=== PATIENT | male | born 1995 | race African-American/Black ===

== ENCOUNTER 2019-03-27 08:57 | Inpatient (IN) ==
[2019-03-27] MEDS ORDERED: SODIUM CHLORIDE 0.9% 1000ML 1,000 ML IV SCH (10:00)
[2019-03-27 10:19] LABS: Basophils # (auto) 0.03 K/uL (0-0.2); Basophils % (auto) 0.3 %; Eosinophils # (auto) 0.12 K/uL (0-0.5); Eosinophils % (auto) 1.3 %; Hematocrit (blood only) 37.5 % (42-52); Hemoglobin 11.9 g/dL (14.0-18.0); Immature Granulocytes # (auto) 0.01 K/uL (0.00-0.02); Immature Granulocytes % (auto) 0.1 %; Lymphocytes # (auto) 1.58 K/uL (1.2-3.4); Mean Corpuscular Hgb Conc 31.7 g/dL (32-36); Mean Corpuscular Volume 75.3 fL (80-100); Mean Platelet Volume 8.5 fL (7.4-10.4); Monocytes # (auto) 1.33 K/uL (0.11-0.59); Monocytes % (auto) 14.3 %; Neutrophils # (auto) 6.22 K/uL (1.4-6.5); Platelet Count 340 K/uL (130-400); RDW Coefficient of Variation 16.3 % (11.5-14.5); RDW Standard Deviation 45.3 fL (36.4-46.3); Red Blood Count 4.98 M/uL (4.7-6.1); White Blood Count 9.29 K/uL (4.8-10.8)
--- NOTE | 2019-03-27 10:23 | Emergency Department Note ---
Entered by Saranya Live acting as a scribe for History of Present Illness General Chief complaint: Rectal Pain Stated complaint: RECTAL PAIN AND BLEEDING Time Seen by Provider: 03/27/19 09:38 Source: patient History of Present Illness Onset (ago): day(s) (3) Location: pelvis Pain Consistency: + constant Maximum Pain Intensity: 4 Quality: + other (rectal ) Associated symptoms: + denies other symptoms (abdominal pain, trauma), + weakness and + other (sweating, pain with bowel movements, blood in stool); no chest pain, no fever/chills and no shortness of breath The patient is a 23 year old male who presents to the Emergency Room with complaints of constant rectal pain beginning three days ago. The patient reports sweating, weakness yesterday, blood in his stool, and pain with his bowel movements. He notes that he has never had any similar rectal pain. He denies any fever, trauma, chest pain, abdominal pain, and shortness of breath. The patient states that he was diagnosed with ulcerative colitis during this past summer and is currently taking medication to treat it. He denies any history of hemorrhoids. Home Medications Home Medications Medication Instructions Recorded Confirmed Type acetaminophen [Tylenol Extra 1,000 mg PO Q6H PRN 03/27/19 03/27/19 History Strength] mesalamine [address] HS 03/27/19 03/27/19 History Allergies Allergy/AdvReac Type Severity Reaction Status Date / Time No Known Allergies Allergy Unverified 03/27/19 10:01 Past Med/Surg History Medical History Ulcerative colitis Surgical History No pertinent past surgical history Social History Feels Safe at Home: Yes Smoking Status: Never smoker Hx Alcohol Use: Yes Alcohol type: hard liquor Alcohol Intake Frequency Comment: "probably too much" 3-4x/week Hx Substance Use: No Review of Systems See HPI for pertinent positives & negatives. and A total of 10 systems reviewed and were otherwise negative Physical Exam Vital Signs Vital Signs - 24 hr 03/27/19 09:01 03/27/19 10:13 03/27/19 10:30 Temperature 36.7 C Temperature Source Oral Sepsis Recent Fever Within 48 Hours No Sepsis New/Unexplained Change in Mental Status No Sepsis Action Taken by Nursing No Action Required Pulse Rate 82 Pulse Rate [Apical] 80 76 Pulse Rhythm [Apical] Regular Respiratory Rate 20 16 17 Respiratory Effort / Characteristics Non-Labored Spontaneous Respiratory Depth Normal Normal Respiratory Pattern Regular Blood Pressure 131/70 Blood Pressure [Left Arm] 125/69 145/68 H Blood Pressure Mean 90 Blood Pressure Mean [Left Arm] 87 93 Pulse Oximetry 100 99 100 Oxygen Delivery Method Room Air Room Air Room Air 03/27/19 11:40 03/27/19 13:00 Temperature Temperature Source Sepsis Recent Fever Within 48 Hours Sepsis New/Unexplained Change in Mental Status Sepsis Action Taken by Nursing Pulse Rate Pulse Rate [Apical] 85 65 Pulse Rhythm [Apical] Regular Regular Respiratory Rate 18 17 Respiratory Effort / Characteristics Non-Labored Spontaneous Non-Labored Spontaneous Respiratory Depth Normal Normal Respiratory Pattern Regular Regular Blood Pressure Blood Pressure [Left Arm] 146/80 H 154/74 H Blood Pressure Mean Blood Pressure Mean [Left Arm] 102 100 Pulse Oximetry 100 100 Oxygen Delivery Method Room Air Room Air General: Non-ill appearing younger male in no acute distress. HEENT: Normal cephalic atraumatic. Pupils are equal round and reactive to light. Extraocular movements are intact. Oropharynx is pink with moist mucous membranes. No swelling of the mouth lips or tongue. Neck: Supple with a midline trachea. No meningeal signs or stiffness, no JVD or bruits. No Stridor. Chest: Clear to auscultation bilaterally. No wheezes or rhonchi. No increased work of breathing. Heart: regular rate and rhythm. Abdomen: Soft nontender, nondistended without rebound guarding or rigidity. Extremities: No cyanosis clubbing or edema. No calf tenderness or asymmetry Spine/Back. Non tender to palpation. No CVA tenderness Skin: Good turgor without rashes. Neurologic exam: Cranial nerves two through 12 are intact. Motor and sensation are intact and symmetrical throughout. Rectal: Normal external without mass or fissures, digital rectal no fluctuation or mass, small amount of blood on glove guaiac positive Course 0935: Past medical records reviewed. The patient was evaluated in room B05. A complete history and physical exam was performed. 1058: Discussed the patient's case with Dr. Graham WOOD. She recommends stool studies. 1111: Upon reevaluation, the patient is resting more comfortably. 1400: I spoke with Dr. Otoole - [facility] who agrees the patient should be evaluated further. 1430: Discussed the patient's case with - [facility] Hospitalist. The patient will be evaluated for further management. Administered Medications Ioversol (Optiray 320 100ml) 93 ml IV ONCE PRN PRN Reason: Interaction Checking Stop: 03/31/19 11:36 Last Admin: 03/27/19 11:38 Dose: 93 ml Documented by: [id number] Discontinued Medications Sodium Chloride (Nss 1000ml) 1,000 mls @ 999 mls/hr IV .Q1H1M RAJANI Stop: 03/27/19 11:00 Last Infusion: 03/27/19 11:17 Dose: 0 mls/hr Documented by: [id number] Admin: 03/27/19 10:12 Dose: 999 mls/hr Documented by: [id number] Piperacillin Sod/Tazobactam Sod (Zosyn) 4.5 gm in 120 mls @ 240 mls/hr IV NOW ONE Stop: 03/27/19 13:29 Last Infusion: 03/27/19 13:55 Dose: 0 mls/hr Documented by: [id number] Admin: 03/27/19 13:05 Dose: 240 mls/hr Documented by: [id number] Morphine Sulfate (Morphine Sulfate) Confirm Administered Dose 2 mg .ROUTE .STK- MED ONE Stop: 03/27/19 16:34 Last Admin: 03/27/19 16:38 Dose: 0.5 mg Documented by: [id number] Medical Decision Making Differential Diagnosis rectal bleed, ulcerative colitis , abscess, fissure, anemia, electrolyte or metabolic abnormalities Medical Records Attestation: I reviewed the patient's medical records. Home Medications Current Medication List: was personally reviewed by me Laboratory Data Attestation: I reviewed the patient's lab results. Result diagrams: 03/27/19 10:03 03/27/19 10:03 Lab Results 03/27/19 03/27/19 03/27/19 Range/Units 10:03 10:03 10:03 WBC 9.29 (4.8-10.8) K/uL RBC 4.98 (4.7-6.1) M/uL Hgb 11.9 L (14.0-18.0) g/dL Hct 37.5 L (42-52) % MCV 75.3 L (80-100) fL MCH 23.9 L (25-34) pg MCHC 31.7 L (32-36) g/dL RDW Std Deviation 45.3 (36.4-46.3) fL RDW Coeff of Abimael 16.3 H (11.5-14.5) % Plt Count 340 (130-400) K/uL MPV 8.5 (7.4-10.4) fL Immature Gran % (Auto) 0.1 % Neut % (Auto) 67.0 % Lymph % (Auto) 17.0 % [place] % (Auto) 14.3 % Eos % (Auto) 1.3 % Baso % (Auto) 0.3 % Immature Gran # (Auto) 0.01 (0.00-0.02) K/uL Neut # (Auto) 6.22 (1.4-6.5) K/uL Lymph # (Auto) 1.58 (1.2-3.4) K/uL [place] # (Auto) 1.33 H (0.11-0.59) K/uL Eos # (Auto) 0.12 (0-0.5) K/uL Baso # (Auto) 0.03 (0-0.2) K/uL Sodium 138 (136-145) mmol/L Potassium 4.0 (3.5-5.1) mmol/L Chloride 104 (98-107) mmol/L Carbon Dioxide 28 (21-32) mmol/L Anion Gap 6.0 (3-11) BUN 11 (7-18) mg/dl Creatinine 1.19 (0.6-1.4) mg/dl Est Cr Clr Drug Dosing 113.2 ml/min Est GFR ( Amer) 99.9 Est GFR (Non-Af Amer) 86.2 BUN/Creatinine Ratio 9.1 L (10-20) Glucose 84 (70-99) mg/dl Calcium 9.0 (8.5-10.1) mg/dl Total Bilirubin 0.4 (0.2-1) mg/dl AST 27 (15-37) U/L ALT 33 (12-78) U/L Alkaline Phosphatase 83 (45-117) U/L C-Reactive Protein 0.92 H (0-0.29) mg/dl Total Protein 8.4 H (6.4-8.2) gm/dl Albumin 3.8 (3.4-5.0) gm/dl Globulin 4.6 H (2.5-4.0) gm/dl Albumin/Globulin Ratio 0.8 L (0.9-2) Lipase 152 (73-393) U/L Imaging Data Radiologist's Impression: Radiology results as stated below per my review and the radiologist's interpretation: CT abd pelvis IV con only CLINICAL HISTORY: rectal pain, ulcerative colitis COMPARISON STUDY: None. TECHNIQUE: The patient was scanned in a dynamic helical fashion during intravenous administration of 93 cc of Optiray 320. A dose lowering technique was utilized adhering to the principles of ALARA. CT DOSE: 474.08 mGycm FINDINGS: Lower chest: The heart is normal in size and configuration, without pericardial effusion. The lung bases and pleural spaces are clear. Liver: The contrast-enhanced liver is normal in size, contour, and attenuation. There is no intrahepatic biliary ductal dilatation. The hepatic veins and portal veins are patent. Gallbladder: Unremarkable. Spleen: Normal in size and attenuation. Pancreas: Unremarkable. Adrenal glands: Unremarkable. Kidneys: There is symmetric renal cortical enhancement. The kidneys are normal in size without hydronephrosis. Bowel: Bowel evaluation is limited given the lack of enteric contrast and the possibility of intra-abdominal fat. There are no transition zones indicate bowel obstruction. There is no evidence of acute diverticulitis. There is no evidence of acute appendicitis. There is a 2 cm left-sided perianal fluid collection, suspicious for abscess given the provided clinical history. There is borderline lower rectal wall thickening. Peritoneum: There is trace free pelvic fluid. There is no free intraperitoneal air. There is rectus diastases. Vasculature: The abdominal aorta is normal in course and caliber. Adenopathy: None. Pelvic viscera: The bladder, and pelvic viscera are unremarkable. Skeletal structures: No destructive osseous lesions are seen. IMPRESSION: 1. No evidence of bowel obstruction. No evidence of free air 2. Borderline lower rectal/anal wall thickening. 20 x 17 x 10 mm left perianal fluid collection, suspicious for a perianal abscess given the patient's provided clinical history. Electronically signed by: Wil Avila M.D. 03/27/2019 11:47 AM Blood Pressure Blood Pressure Findings: Elevated blood pressure Blood Pressure Disposition: further management by hospitalist [facility] Narrative This patient comes in as described above. He was placed in room B5. He has been having rectal pain and bleeding for about 3 days. He has been seen at [facility]. He is not not had any hemorrhoids or masses or trauma. He has had no fever or chills. He does have a history of ulcerative colitis and is on mesalamine. He has no local GI specialist. On exam, there is no rectal masses seen or felt. He does have bloody stool. He is afebrile. IV access established and he was hydrated with IV normal saline. he does have a normal white count. Hemoglobin is 11.7. I did talk to Babar from [employer]. She recommended getting inflammatory markers as well as ordering a CT. She also did come and see the patient in the ER. The patient's CAT scan does show a small abscess. The patient was given IV Zosyn 4.5 grams. I did consult surgery and they recommended medical admit and IV antibiotics. I then consulted Dr. More who will admit the admit/observe the patient. Impression & Plan Abscess, perianal, Ulcerative colitis, Rectal bleeding, Pain, rectal Discharge Plan Visit Data *Final* Discharge Date/Time: 03/27/19 15:36 Chief Complaint: Rectal Pain Stated Complaint: RECTAL PAIN AND BLEEDING ED Provider: Adalberto Fonseca Discharge Problem: Abscess, perianal, Ulcerative colitis, Rectal bleeding, Pain, rectal Patient Disposition: Admitted As Inpatient Discharge Instructions Interventions: ED Discharge Assessment Last Done: 03/27/19 15:36 The scribe's documentation has been prepared under my direction and personally reviewed by me in its entirety. I confirm that the note above accurately reflects all work, treatment, procedures, and medical decision making performed by me.
[2019-03-27 10:36] LABS: Albumin Level 3.8 gm/dl (3.4-5.0); BUN Creatinine Ratio 9.1 (10-20); Creatinine Clr Calc Pharmacy 113.2 ml/min; Est GFR (African American) 99.9; Est GFR (Non-African American) 86.2
[2019-03-27 10:38] LABS: Albumin Globulin Ratio 0.8 (0.9-2); Bilirubin,Total 0.4 mg/dl (0.2-1); Globulin 4.6 gm/dl (2.5-4.0); Total Protein 8.4 gm/dl (6.4-8.2)
[2019-03-27] MEDS ORDERED: IOVERSOL 100ml IV PRN (11:37)
--- NOTE | 2019-03-27 11:48 | CT Scan Report ---
CT abd pelvis IV con only CLINICAL HISTORY: rectal pain, ulcerative colitis COMPARISON STUDY: None. TECHNIQUE: The patient was scanned in a dynamic helical fashion during intravenous administration of 93 cc of Optiray 320. A dose lowering technique was utilized adhering to the principles of ALARA. CT DOSE: 474.08 mGycm FINDINGS: Lower chest: The heart is normal in size and configuration, without pericardial effusion. The lung ba ses and pleural spaces are clear. Liver: The contrast-enhanced liver is normal in size, contour, and attenuation. There is no intrahepa tic biliary ductal dilatation. The hepatic veins and portal veins are patent. Gallbladder: Unremarkable. Spleen: Normal in size and attenuation. Pancreas: Unremarkable. Adrenal glands: Unremarkable. Kidneys: There is symmetric renal cortical enhancement. The kidneys are normal in size without hydron ephrosis. Bowel: Bowel evaluation is limited given the lack of enteric contrast and the possibility of intra-ab dominal fat. There are no transition zones indicate bowel obstruction. There is no evidence of acute diverticulitis. There is no evidence of acute appendicitis. There is a 2 cm left-sided perianal fluid collection, suspicious for abscess given the provided clinical history. There is borderline lower re ctal wall thickening. Peritoneum: There is trace free pelvic fluid. There is no free intraperitoneal air. There is rectus d iastases. Vasculature: The abdominal aorta is normal in course and caliber. Adenopathy: None. Pelvic viscera: The bladder, and pelvic viscera are unremarkable. Skeletal structures: No destructive osseous lesions are seen. IMPRESSION: 1. No evidence of bowel obstruction. No evidence of free air 2. Borderline lower rectal/anal wall thickening. 20 x 17 x 10 mm left perianal fluid collection, susp icious for a perianal abscess given the patient's provided clinical history. Electronically signed by: Wil Avila M.D. 03/27/2019 11:47 AM
[2019-03-27] MEDS ORDERED: PIPERACILLIN/TAZOBACTAM 4.5 GM/120 ML BAG IV ONE (13:00)
[2019-03-27] MEDS ORDERED: PIPERACILL/TAZOBAC CONSULT ACTIVE PRN ×2 (13:00→16:13)
--- NOTE | 2019-03-27 13:01 | Gastrointestinal Consultation ---
Date of Consultation March 27, 2019 Assessment & Plan (1) Rectal bleeding: (2) Ulcerative (chronic) proctitis: (3) Alesia-rectal abscess: Pt is a 23 y/o male w hx of UC who presented w increased rectal bleeding and rectal pain. No significant anemia, or leukocytosis. CT abd/pelvis w/o co ntrast showed no signs of bowel obstruction, + 2cm L perianal fluid collection suspicious for abscess. - Obtain record of prior GI visit, endoscopy & path results from Dr. Sampson Godoy ([facility] [phone]). - Recommend Surgery eval for the perianal abscess for possible I&D, antibx treatment. - Check stools for infectious processes. - We can help set up f/u upon his DC so he can get established in local GI group while in town. Supervising Physician Co-Signing Physician Notes I performed a history and physical examination of the patient, including specifically on physical exam - soft, nontender abdomen. I have discussed the patient's management with Mckenzie. Please refer to the nurse practitioner's note for the documented findings and plan of care. 23 yrs old male patient with recent diagnosis of [place], seems limited disease to the rectum per patient. On Supp therapy. Now presented with rectal pain, minimal bleeding, no anemia. CT scan with perianal collection. Plan: Obtain records. Surgery eval. Add PO Mesalamine. Continue rectal mesalamine. Further management of his UC as OP. Recall if any questions or concerns. History of Present Illness Reason for Consultation: Hx of Ulcerative colitis, rectal pain and bleeding Requesting Physician: Dr. Adalberto Fonseca Attending Physician: Dr. Suman Lewis History of Present Illness Pt is a 23 y/o [employer] student who presented to ED w c/o rectal pain and bleeding. Rectal bleeding been present for over a year. 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 Eventually had GI evaluation there and colonoscopy performed at [facility] (Dr. Sampson Godoy [phone]). Told he has ulcerative colitis. He was prescribed Mesalamine 1g CA suppository. He noticed improvement of rectal bleeding and stool urgency after being on this. Took suppository for about 1 month, stopped as meds were melted while he moved back here. He finally refilled med and restarted this again 10 days ago. He woke up w severe rectal pain 2 days ago. Denies fever chills, abd pain/cramping, n/v stools been somewhat pasty. Rectal bleeding still present but more in last 2 days. He's been taking Tylenol for the pain and eventually went to ED for evaluation. Labs, CT abd/pelvis results reviewed: No leukocytosis, H/H 11/37 , unremarkable chem panel. CRP elevated. Stool studies ordered, pending. CT abd/pelvis w/o contrast showed no signs of bowel obstruction. There's a 2 cm fluid collection on L perianal area suspicious for abscess. Denies tobacco, illicit drugs. 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 Hx of azithromycin use 1 month ago for Chlamydia Allergies Allergy/AdvReac Type Severity Reaction Status Date / Time No Known Allergies Allergy Unverified 03/27/19 10:01 Home Medications Home Medications Medication Instructions Recorded Confirmed Type acetaminophen [Tylenol Extra 1,000 mg PO Q6H PRN 03/27/19 03/27/19 History Strength] mesalamine 1 g CA HS 03/27/19 03/27/19 History Patient History Medical History Ulcerative colitis Surgical History No pertinent past surgical history Social History Preferred Language: Hungarian Communication Ability: Effective [employer] Teacher Required: No Beliefs That Will Affect Care: Cultural Cultural Beliefs: Does not eat Pork Current Living Situation: Other Current Living Situation Comment: roomates, friends Feels Safe at Home: Yes Smoking Status: Never smoker Hx Alcohol Use: Yes Alcohol type: hard liquor Alcohol Intake Frequency Comment: "probably too much" 3-4x/week Hx Substance Use: No Review of Systems Review of Systems: All systems reviewed & are unremarkable except as noted in HPI & below Physical Exam Constitutional: WD/WN, vitals as above well groomed, cooperative and comfortable Eyes: PERRL, conjunctivae normal, anicteric sclerae ENMT: external ear and nose normal, oropharynx normal Respiratory: normal respiratory effort, lungs clear to auscultation Cardiovascular: RRR, no murmur, no edema Gastrointestinal (Abdomen): normal bowel sounds, soft, nontender, no hepatosplenomegaly Rectal exam done by ED physician - blood found in rectal vault. I deferred repeat rectal exam as pt said he was very in pain and uncomfortable during the previous exam Skin: no rashes, warm and dry no jaundice Neurologic: Motor/Sensory: no asterixis Psychiatric: A+Ox3, euthymic affect Lymphatic: no lymphedema Results & Data Vital Signs (Past 12 Hours) Vital Signs Temp Pulse Pulse Resp BP BP Pulse Ox 03/27/19 11:40 85 18 146/80 H 100 03/27/19 10:30 76 17 145/68 H 100 03/27/19 10:13 80 16 125/69 99 03/27/19 09:01 36.7 C 82 20 131/70 100
--- NOTE | 2019-03-27 14:14 | Surgery Consultation ---
Date of Consultation March 27, 2019 Assessment & Plan (1) Ulcerative (chronic) proctitis: This is a 23y M with a PMH of ulcerative colitis who presents to the ED with a 3day history of rectal pain and bloody bowel movements. CT scan showing borderline lower rectal/anal wall thickening with a [id number] left perianal fluid collection suspicious for abscess. Patients WBC 9.2, Hb.9, and is afebrile. Patient will be admitted under Medicine and GI consultation obtained. No indication for surgical intervention at this time. Will recommend conservative management with IV abx for concern of abscess and inflammatory changes. Patient can have a diet as tolerates from our standpoint. Labs tomorrow to monitor Hbg and WBC. We will continue to follow along for any surgical needs this admission. Patient seen and examined with Dr. Andrade. Supervising Physician Co-Signing Physician Notes The current issues were explained to the patient in the emergency room and at this time I would like for him to continue antibiotic since this is been going off approximately 3 days and the pain appears to be a little bit more tolerable the area is about 2 cm in size by CAT scan and does have some rectal thickening we will evaluate the patient regularly to monitor his progress and certainly if anytime he deteriorates I would either repeat the CAT scan and may require surgery but hopefully that will not be necessary History of Present Illness History of Present Illness This is a 23y M with a PMH of recently diagnosed ulcerative colitis December of this year who presents to the [facility] ED with a 3 day history of rectal pain and increased bloody bowel movements. He has tried taking Tylenol for the pain and states that the pain has slightly improved. The patient endorses that he has had blood in his stool over the past year about 60% of the time, however over the past three days he's noticed bright red blood with each stool. He denies diar michael and states that he usually has 1+ BM's a day. 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 He was started on mesalamine AR daily. In the ED patient underwent a CT scan that revealed borderline lower rectal/anal wall thickening with a [id number] left perianal fluid collection, suspicious for pat-rectal abscess. WBC 9.2, Hb.9, and patient VSS. Allergies Allergy/AdvReac Type Severity Reaction Status Date / Time No Known Allergies Allergy Unverified 03/27/19 10:01 Home Medications Home Medications Medication Instructions Recorded Confirmed Type acetaminophen [Tylenol Extra 1,000 mg PO Q6H PRN 03/27/19 03/27/19 History Strength] mesalamine 1 g AR HS 03/27/19 03/27/19 History Patient History Medical History Ulcerative colitis Surgical History No pertinent past surgical history Social History Preferred Language: Tajik Communication Ability: Effective Splitter Head Required: No Beliefs That Will Affect Care: Cultural Cultural Beliefs: Does not eat Pork Current Living Situation: Other Current Living Situation Comment: roomates, friends Feels Safe at Home: Yes Smoking Status: Never smoker Hx Alcohol Use: Yes Alcohol type: hard liquor Alcohol Intake Frequency Comment: "probably too much" 3-4x/week Hx Substance Use: No Review of Systems Constitutional: no fever and no chills Gastrointestinal: + blood in stools (worsening over the past 3 days); no abdominal pain, no bloating, no nausea and no vomiting Physical Exam Physical Exam: awake/alert Constitutional: well developed, well nourished and cooperative; no acute distress Respiratory: normal respiratory effort; no respiratory distress Cardiovascular: Rate/Rhythm: regular rate Gastrointestinal (Abdomen): Inspection/Auscultation: abdomen not distended Percussion/Palpation: abdomen soft; abdomen nontender Results & Data Vital Signs (Past 12 Hours) Vital Signs Temp Pulse Pulse Resp BP BP Pulse Ox 03/27/19 13:00 65 17 154/74 H 100 03/27/19 11:40 85 18 146/80 H 100 03/27/19 10:30 76 17 145/68 H 100 03/27/19 10:13 80 16 125/69 99 03/27/19 09:01 36.7 C 82 20 131/[address] abd pelvis IV con only CLINICAL HISTORY: rectal pain, ulcerative colitis COMPARISON STUDY: None. TECHNIQUE: The patient was scanned in a dynamic helical fashion during intravenous administration of 93 cc of Optiray 320. A dose lowering technique was utilized adhering to the principles of ALARA. CT DOSE: 474.08 mGycm FINDINGS: Lower chest: The heart is normal in size and configuration, without pericardial effusion. The lung bases and pleural spaces are clear. Liver: The contrast-enhanced liver is normal in size, contour, and attenuation. There is no intrahepatic biliary ductal dilatation. The hepatic veins and portal veins are patent. Gallbladder: Unremarkable. Spleen: Normal in size and attenuation. Pancreas: Unremarkable. Adrenal glands: Unremarkable. Kidneys: There is symmetric renal cortical enhancement. The kidneys are normal in size without hydronephrosis. Bowel: Bowel evaluation is limited given the lack of enteric contrast and the possibility of intra-abdominal fat. There are no transition zones indicate bowel obstruction. There is no evidence of acute diverticulitis. There is no evidence of acute appendicitis. There is a 2 cm left-sided perianal fluid collection, suspicious for abscess given the provided clinical history. There is borderline lower rectal wall thickening. Peritoneum: There is trace free pelvic fluid. There is no free intraperitoneal air. There is rectus diastases. Vasculature: The abdominal aorta is normal in course and caliber. Adenopathy: None. Pelvic viscera: The bladder, and pelvic viscera are unremarkable. Skeletal structures: No destructive osseous lesions are seen. IMPRESSION: 1. No evidence of bowel obstruction. No evidence of free air 2. Borderline lower rectal/anal wall thickening. 20 x 17 x 10 mm left perianal fluid collection, suspicious for a perianal abscess given the patient's provided clinical history. Electronically signed by: Wil Avila M.D. 03/27/2019 11:47 AM PG Care Time/CCT Total # of Minutes Spent Total Time Spent with Patient: Total time spent is greater than 50% in coordination of care (as documented) at patient's floor/unit and/or counseling patient:
--- NOTE | 2019-03-27 15:01 | History & Physical Report ---
Date of Service March 27, 2019 Assessment & Plan (1) Alesia-rectal abscess: Noted as possible on CTAP Surgery is hoping for conservative management for now Zosyn, IVF Liquids (2) Rectal bleeding: Likely related to UC + abscess Hb stable Monitor (3) Ulcerative (chronic) proctitis: continue home meds (4) DVT prophylaxis: Ambulation, SCDs given above History of Present Illness Primary Care Provider: NO PCP 23 y/o M c/o rectal pain and bleeding. Pt states that he has been having rectal pain with sitting for the last 3 days, worse this AM. He has pain with bowel movements, but also without. He has been having BRBPR on and off for a year, but it was worse the last few days. Pt denies fever, SOB, chest pain, abd pain, n/v/c/d, LE pain or swelling. No issues with PO. Pt was dx with UC over the summer. He does not follow with anyone locally. Allergies Allergy/AdvReac Type Severity Reaction Status Date / Time No Known Allergies Allergy Unverified 03/27/19 10:01 Home Medications Home Medications Medication Instructions Recorded Confirmed Type acetaminophen [Tylenol Extra 1,000 mg PO Q6H PRN 03/27/19 03/27/19 History Strength] mesalamine 1 g IA HS 03/27/19 03/27/19 History Past Med/Surg History Medical History Ulcerative colitis Surgical History No pertinent past surgical history Social History Feels Safe at Home: Yes Smoking Status: Never smoker Hx Alcohol Use: Yes Alcohol type: hard liquor Alcohol Intake Frequency Comment: "probably too much" 3-4x/week Hx Substance Use: No Review of Systems Review of Systems: Pertinent positives and negatives reviewed in HPI--all others negative Physical Exam Constitutional: WD/WN, vitals as above Eyes: normal visual tello by confrontation and + anicteric sclerae Neck: normal visual inspection and trachea midline Respiratory: normal respiratory effort, lungs clear to auscultation Cardiovascular: Rate/Rhythm: regular rate and regular rhythm Gastrointestinal (Abdomen): Inspection/Auscultation: abdomen not distended Percussion/Palpation: abdomen soft; abdomen nontender Musculoskeletal: Head/Neck/Chest: normocephalic and head atraumatic negative for edema, peripheral pulses intact Skin: no rashes, warm and dry Neurologic: awake; not confused Speech / Cognition: normal speech Psychiatric: A+Ox3, euthymic affect Results & Data Vital Signs (Past 12 Hours) Vital Signs Temp Pulse Pulse Resp BP BP Pulse Ox 03/27/19 13:00 65 17 154/74 H 100 03/27/19 11:40 85 18 146/80 H 100 03/27/19 10:30 76 17 145/68 H 100 03/27/19 10:13 80 16 125/69 99 03/27/19 09:01 36.7 C 82 20 131/70 100 Diagnostic Findings CTAP: rectal/anal wall thickening, concern for possible abscess Code Status & VTE Plan VTE Prophylaxis Plan VTE Prophylaxis will be ordered: Yes PG Care Time/CCT Total # of Minutes Spent Total Time Spent with Patient: Total time spent is greater than 50% in coordination of care (as documented) at patient's floor/unit and/or counseling patient:
[2019-03-27] MEDS ORDERED: MAGNESIUM HYDROXIDE SUSP 30 ML UDC PO PRN (16:13)
[2019-03-27] MEDS ORDERED: ONDANSETRON INJ 2 MG/ML 2 ML VIAL IV PRN (16:13)
[2019-03-27] MEDS ORDERED: MoRPHine SULFATE 2 MG/ML CARP IV PRN (16:13)
[2019-03-27] MEDS ORDERED: ACETAMINOPHEN 325 MG TAB PO PRN (16:13)
[2019-03-27] MEDS ORDERED: MoRPHine SULFATE 2 MG/ML CARP ONE (16:33)
[2019-03-27] MEDS: SODIUM CHLORIDE 0.45 % 1,000 ML IV SCH ×2 (17:05→17:17)
[2019-03-27] MEDS: KETOROLAC TROMETHAMINE 15 MG/ML VIAL IV PRN ×2 (17:05→23:44)
[2019-03-27] MEDS: PIPERACILLIN/TAZOBACTAM 3.375 GM in DEXTROSE 5% 100 ML IV SCH (17:39)
[2019-03-27] MEDS: MESALAMINE 400 MG CAPDR PO SCH (20:11)
[2019-03-28] MEDS: PIPERACILLIN/TAZOBACTAM 3.375 GM in DEXTROSE 5% 100 ML IV SCH ×2 (02:06→13:41)
[2019-03-28] MEDS: SODIUM CHLORIDE 0.45 % 1,000 ML IV SCH ×2 (03:17→13:41)
[2019-03-28] MEDS: ACETAMINOPHEN 500 MG TAB PO PRN ×2 (05:02→17:19)
[2019-03-28 06:23] LABS: Basophils # (auto) 0.02 K/uL (0-0.2); Basophils % (auto) 0.2 %; Eosinophils % (auto) 3.5 %; Hematocrit (blood only) 37.6 % (42-52); Hemoglobin 12.2 g/dL (14.0-18.0); Immature Granulocytes # (auto) 0.01 K/uL (0.00-0.02); Immature Granulocytes % (auto) 0.1 %; Lymphocytes # (auto) 2.17 K/uL (1.2-3.4); Lymphocytes % (auto) 25.2 %; Mean Corpuscular Hgb Conc 32.4 g/dL (32-36); Mean Corpuscular Volume 75.2 fL (80-100); Mean Platelet Volume 8.5 fL (7.4-10.4); Monocytes # (auto) 1.43 K/uL (0.11-0.59); Monocytes % (auto) 16.6 %; Neutrophils # (auto) 4.69 K/uL (1.4-6.5); Neutrophils % (auto) 54.4 %; Platelet Count 313 K/uL (130-400); RDW Coefficient of Variation 16.3 % (11.5-14.5); RDW Standard Deviation 45.2 fL (36.4-46.3); White Blood Count 8.62 K/uL (4.8-10.8)
[2019-03-28 07:00] LABS: BUN Creatinine Ratio 10.1 (10-20); Calcium 8.8 mg/dl (8.5-10.1); Creatinine Clr Calc Pharmacy 102.8 ml/min; Est GFR (African American) 88.9; Est GFR (Non-African American) 76.7; Potassium 3.9 mmol/L (3.5-5.1)
[2019-03-28] MEDS: KETOROLAC TROMETHAMINE 15 MG/ML VIAL IV PRN ×2 (07:40→13:40)
[2019-03-28] MEDS: MESALAMINE 400 MG CAPDR PO SCH ×2 (07:40→14:45)
--- NOTE | 2019-03-28 10:13 | Family Medicine Progress Note ---
Date of Service March 28, 2019 Assessment & Plan (1) Abscess, perianal: Patient is a 23 year old male PMHx Ulcerative Colitis presenting with rectal pain and bright red bleeding in his stool later found on CT to likely be a L perianal abscess measuring [id number]. Perianal Abscess -CT in ED showed a L Perianal fluid collection measuring [id number], likely an abscess -Vitals Stable, WBC 8.62 -Currently on IV Zosyn -GI Consulted -Recommended Mesalamine 1600mg PO TID -No other recs at this time, will contact if needed. -Surgery Consulted -Conservative management at this time with IV antibiotics -If symptoms worsen or patient deteriorates consider another CT scan and possible I&D -Regular diet as patient can tolerate. Ulcerative Colitis -Takes Mesalamine per rectum as a home med, will hold for now. -Mesalamine 1600mg PO TID secondary to continued rectal bleeding. FEN/GI - NS, Regular diet DVT - SCD, encourage movement Code - Full (2) Ulcerative colitis: (3) Pain, rectal: (4) Rectal bleeding: (5) Alesia-rectal abscess: Supervising Physician Co-Signing Physician Notes Please see my attestation in the discharge summary the same date. Subjective Patient is a 23 year old male with PMHx of Ulcerative Colitis diagnosed in December presenting with 4 day history of rectal pain with bright red blood on defecation. Patient states that the pain is located primarily near his anus/rectum and that it has been an 8/10 most days. He notes that currently his pain is a 2/10 and fairly well controlled. He does note a history of UC diagnosed in December, but states his symptoms were likely every a year before that. He takes Mesalamine suppositories but only restarted them 2 weeks ago as he had compromised his supply prior to then. While in the ED a CT scan showed a [id number] L perianal fluid collection that was likely to be a perianal cyst of the L perianal space. He denies any fever or chills before and during this stay. He has not had a bowel movement since his admittance. Review of Systems Constitutional: no fever, no chills, no sweats, no body aches, no fatigue and no weakness Eyes: no eye pain and no worsening vision Ear, Nose, Mouth, Throat: no ear pain, no tinnitus, no hearing loss, no dizziness and no sinus pain/pressure Respiratory: no cough, no chest congestion, no dyspnea and no dyspnea on exertion Cardiovascular: no chest pain, no dyspnea, no dyspnea on exertion, no palpitations and no edema Gastrointestinal: + blood in stools and + problem reported (Rectal Pain with bowel movements); no abdominal pain, no cramping, no constipation and no diarrhea/loose stools Genitourinary: no dysuria, no nocturia, no hematuria and no flank pain Musculoskeletal: no back pain Integumentary: no rash Neurologic: no headache(s) Physical Exam Constitutional: WD/WN, vitals as above well developed and well nourished; no acute distress Eyes: normal visual tello by confrontation, PERRL, normal accommodation and EOM intact bilaterally ENMT: external ear and nose normal, oropharynx normal Neck: trachea midline, no thyromegaly Respiratory: normal respiratory effort, lungs clear to auscultation Cardiovascular: RRR, no murmur, no edema Gastrointestinal (Abdomen): normal bowel sounds, soft, nontender, no hepatosplenomegaly Rectal exam was not performed. Skin: no rashes, warm and dry Genitourinary: no CVA tenderness Results & Data Vital Signs (Past 12 Hours) Vital Signs Temp Pulse Resp BP BP Pulse Ox 03/28/19 07:35 36.6 C 71 16 143/78 H 100 03/27/19 23:21 36.8 C 74 16 156/82 H 100 Laboratory Results Abnormal lab results 03/27/19 03/27/19 03/27/19 Range/Units 10:03 10:03 10:03 Hgb 11.9 L (14.0-18.0) g/dL Hct 37.5 L (42-52) % MCV 75.3 L (80-100) fL MCH 23.9 L (25-34) pg MCHC 31.7 L (32-36) g/dL RDW Coeff of Abimael 16.3 H (11.5-14.5) % [place] # (Auto) 1.33 H (0.11-0.59) K/uL BUN/Creatinine Ratio 9.1 L (10-20) C-Reactive Protein 0.92 H (0-0.29) mg/dl Total Protein 8.4 H (6.4-8.2) gm/dl Globulin 4.6 H (2.5-4.0) gm/dl Albumin/Globulin Ratio 0.8 L (0.9-2) 03/28/19 Range/Units 06:02 Hgb 12.2 L (14.0-18.0) g/dL Hct 37.6 L (42-52) % MCV 75.2 L (80-100) fL MCH 24.4 L (25-34) pg MCHC (32-36) g/dL RDW Coeff of Abimael 16.3 H (11.5-14.5) % [place] # (Auto) 1.43 H (0.11-0.59) K/uL BUN/Creatinine Ratio (10-20) C-Reactive Protein (0-0.29) mg/dl Total Protein (6.4-8.2) gm/dl Globulin (2.5-4.0) gm/dl Albumin/Globulin Ratio (0.9-2) Medications Administered Current Inpatient Medications Acetaminophen (Tylenol) 1,000 mg PO Q6H PRN PRN Reason: Pain Stop: 04/26/19 16:12 Last Admin: 03/28/19 05:02 Dose: 1,000 mg Documented by: Acetaminophen (Tylenol) 650 mg PO Q4H PRN PRN Reason: pain/fever Stop: 04/26/19 16:12 Sodium Chloride (1/2 Nss) 1,000 mls @ 100 mls/hr IV .Q10H RAJANI Stop: 04/26/19 16:44 Last Admin: 03/28/19 03:17 Dose: 100 mls/hr Documented by: Piperacillin Sod/Tazobactam (Sod 3.375 gm/ Dextrose) 115 mls @ 30 mls/hr IV Q8H RAJANI; Protocol Stop: 04/06/19 17:59 Last Infusion: 03/28/19 05:56 Dose: Infused Documented by: Ioversol (Optiray 320 100ml) 93 ml IV ONCE PRN PRN Reason: Interaction Checking Stop: 03/31/19 11:36 Last Admin: 03/27/19 11:38 Dose: 93 ml Documented by: Ketorolac Tromethamine (Toradol) 15 mg IV Q6H PRN PRN Reason: Pain Stop: 04/01/19 16:12 Last Admin: 03/28/19 07:40 Dose: 15 mg Documented by: Magnesium Hydroxide (Milk Of Magnesia) 30 ml PO Q6H PRN PRN Reason: Constipation Stop: 04/26/19 16:12 Mesalamine (Delzicol) 1,600 mg PO TID RAJANI Stop: 04/26/19 20:59 Last Admin: 03/28/19 07:40 Dose: 1,600 mg Documented by: Miscellaneous (Order Awaiting Action) 1 ea N/A QS RAJANI Stop: 04/27/19 16:59 Miscellaneous Information (Consult) 1 ea N/A UD PRN PRN Reason: Consult Stop: 04/26/19 12:59 Morphine Sulfate (Morphine Sulfate) 0.5 mg IV Q4H PRN PRN Reason: Pain Stop: 04/10/19 16:12 Ondansetron HCl (Zofran) 4 mg IV Q6H PRN PRN Reason: Nausea Stop: 04/26/19 16:12 PG Care Time/CCT Total # of Minutes Spent Total Time Spent with Patient: Total time spent is greater than 50% in coordination of care (as documented) at patient's floor/unit and/or counseling patient: Resident Activity Tracking Resident Involvement: Resident Care Provided Care Provided: Adult Hospital Medicine (1) Ulcerative colitis Digestive disease complication type: unspecified complication Ulcerative colitis location: unspecified ulcerative colitis location Qualified Code(s): K51.919 - Ulcerative colitis, unspecified with unspecified complications
--- NOTE | 2019-03-28 13:43 | Surgery Progress Note ---
Date of Service March 28, 2019 Assessment & Plan (1) Ulcerative colitis: Hospital day 1: Patient with history of UC here with rectal pain and bloody BM's Pain is improving each day Tolerating diet Hbg up from yesterday at 12.2 from 11.9 WBC stable at 8.6 on IV abx. Discussed with the hospitalist team, okay for patient to transition to PO Abx either Augmentin or Cipro/and discharge to home if okay with GI If patient worsens may need to return for re-imaging, however he continues to im prove so hope this won't be the case Patient seen and examined with Dr. Andrade Subjective Patient states that his pain is getting better and more manageable. Says it was a 7/10 severity yesterday and today is 3/10. Still having BM's with some blood, denies diarrhea. Tolerating diet. Physical Exam Physical Exam: awake/alert Results & Data Vital Signs (Past 12 Hours) Vital Signs Temp Pulse Resp BP Pulse Ox 03/28/19 07:35 36.6 C 71 16 143/78 H 100 PG Care Time/CCT Total # of Minutes Spent Total Time Spent with Patient: Total time spent is greater than 50% in coordination of care (as documented) at patient's floor/unit and/or counseling patient: (1) Ulcerative colitis Digestive disease complication type: unspecified complication Ulcerative colitis location: unspecified ulcerative colitis location Qualified Code(s): K51.919 - Ulcerative colitis, unspecified with unspecified complications
--- NOTE | 2019-03-28 13:51 | Discharge Summary ---
Date of Service March 28, 2019 Admission HPI Per Admitting Provider 23 y/o M c/o rectal pain and bleeding. Pt states that he has been having rectal pain with sitting for the last 3 days, worse this AM. He has pain with bowel movements, but also without. He has been having BRBPR on and off for a year, but it was worse the last few days. Pt denies fever, SOB, chest pain, abd pain, n/v/c/d, LE pain or swelling. No issues with PO. Pt was dx with UC over the summer. He does not follow with anyone locally. Admission Exam Per Admitting Provider Constitutional: WD/WN, vitals as above Eyes: normal visual tello by confrontation and + anicteric sclerae Neck: normal visual inspection and trachea midline Respiratory: normal respiratory effort, lungs clear to auscultation Cardiovascular: Rate/Rhythm: regular rate and regular rhythm Gastrointestinal (Abdomen): Inspection/Auscultation: abdomen not distended Percussion/Palpation: abdomen soft; abdomen nontender Musculoskeletal: Head/Neck/Chest: normocephalic and head atraumatic negative for edema, peripheral pulses intact Skin: no rashes, warm and dry Neurologic: awake; not confused Speech / Cognition: normal speech Psychiatric: A+Ox3, euthymic affect Principal Diagnosis Perianal Abscess Discharge Exam Constitutional WD/WN, vitals as above well developed and well nourished; no acute distress Eyes normal visual tello by confrontation, PERRL, normal accommodation and EOM intact bilaterally ENMT external ear and nose normal, oropharynx normal Neck trachea midline, no thyromegaly Respiratory normal respiratory effort, lungs clear to auscultation Cardiovascular RRR, no murmur, no edema Gastrointestinal (Abdomen) normal bowel sounds, soft, nontender, no hepatosplenomegaly Skin no rashes, warm and dry Psychiatric A+Ox3, euthymic affect Genitourinary no CVA tenderness Discharge Data Allergies Allergy/AdvReac Type Severity Reaction Status Date / Time No Known Allergies Allergy Unverified 03/27/19 10:01 Consultations 03/27/19 13:04 ED Decision to Admit Stat 03/27/19 16:13 Consult Gastroenterology Routine Consult General Surgery Routine Ordered Studies 03/27/19 10:57 CT abd pelvis IV con only Stat Hospital Course (1) Abscess, perianal: Patient is a 23 year old male PMHx Ulcerative Colitis presenting with rectal pain and bright red bleeding in his stool later found on CT to likely be a L perianal abscess measuring [id number]. Perianal Abscess -CT in ED showed a L Perianal fluid collection measuring [id number], likely an abscess -Vitals Stable, WBC 8.62 -IV Zosyn was initiated. -GI Consulted -Recommended Mesalamine 1600mg PO TID -Surgery Consulted -Conservative management with IV antibiotics -If symptoms worsen or patient deteriorates consider another CT scan and possible I&D -Regular diet as patient can tolerate. Ulcerative Colitis -Takes Mesalamine per rectum as a home med, will hold for now. -Mesalamine 1600mg PO TID secondary to continued rectal bleeding. (2) Ulcerative colitis: (3) Pain, rectal: (4) Rectal bleeding: (5) Alesia-rectal abscess: Total Time Total Time Spent Total Time Spent (In Minutes): >30 Discharge Plan Discharge Items Patient Disposition: Home - Self-Care Reason For Visit: RECTAL ABCESS Discharge Diagnosis: Perianal Abscess Activity: Resume your previous activity Non-emergency contact: Primary Care Provider Call non-emergency contact if: you have any medication questions, your symptoms worsen, your pain is worsening, you have a fever and your temperature is above 101 Follow-up/Referrals: Bubba Brown DO [Resident] - PCP,NO [Primary Care Provider] - Diet: Regular Addtl Attending Provider Instructions: Mr. Elliott, you were admitted into the hospital secondary to severe rectal pain and bright red blood with defecation. You had a CT scan in the ED that revealed a [id number] abscess located on the L side surrounding your anus. This along with your history of Ulcerative Colitis was likely the cause of your pain and bleeding. You were seen by GI who increased your dose of Mesalamine while in the hospital and Surgery who opted that you be treated conservatively due to the size of the abscess. You were put on IV antibiotics and medication for pain control. You are being discharged with oral antibiotics due to improvement of your pain and symptoms. Please follow the following instructions below: -Call and set up an appointment with Dr. Bubba Brown in the next week for follow up. -Please take your antibiotic as prescribed: Augmentin 875mg 1 pill two (2) times per day for the next 7 days. -Please take your pain medication as prescribed: Ibuprofen 600mg 1 pill every 6 hours as needed for pain. -Please call if you have any questions or if your symptoms worsen, or if you develop a fever. Pending Studies at Discharge: No Stand-Alone Forms: My [facility] Medications and DC Order Prescriptions: New amoxicillin-pot clavulanate [Augmentin] 875-125 mg tablet 1 tab PO BID 7 Days Qty: 14 RF: 0 ibuprofen 600 mg tablet 600 mg PO Q6H Qty: 30 RF: 0 mesalamine [Delzicol] 400 mg Capsule (With Del Rel Tablets) 1,600 mg PO TID 30 Days Qty: 360 RF: 0 Continued acetaminophen [Tylenol Extra Strength] 500 mg Tablet 1,000 mg PO Q6H PRN (Reason: Pain) RF: 0 mesalamine 1,000 mg Suppository 1 g KS HS RF: 0 Discharge Orders: Discharge Order (Routine); Ordered 03/28/19 Ordered By: Bubba Brown Admission Data Admit Date/Time: 03/27/19 14:32 Attending Provider: Pat More Admit Provider: Pat More Primary Care Provider: PCP,NO Other Providers: Pat More ; Mckenzie Stevenson ; Kartik Andrade. Other Interventions: Discharge Summary Assessment (RN) Last Done: 03/28/19 15:55 Supervising Physician Co-Signing Physician Notes I saw the patient with the resident physician and confirmed escobar portions of the history and physical exam. I agree with the impression and plan as noted above. I still discussed the case with the surgical service. The patient has remained afebrile since admission. His pain is markedly improved. If possible, he expressed interest in discharge. After discussing the case with the surgical service, it was thought he was appropriate for outpatient treatment. Agree with Augmentin 875 mg p.o. twice daily, plus Tylenol or ibuprofen as needed discomfort. Discussed that increased pain or development of fever would necessitate reevaluation and likely more aggressive treatment. Resident Activity Tracking Resident Involvement: Resident Care Provided Care Provided: Adult [facility] Medicine
== END 2019-03-28 19:28 | disposition home or self-care (01) | DRG 387 ==
LOC: ED 08:57 → 3W 14:32
DX: K51.214 Ulcerative (chronic) proctitis with abscess